=== PATIENT | female | born 1960 ===

== ENCOUNTER 2016-03-07 14:06 | Emergency (ER) | payer MEDICAID ==
[~2016-03-07] VITALS: Ht 157.5 cm; Wt 52.3 kg
[~2016-03-07 14:06] MED LIST: AMOX-366 PO; AMOX500T2 PO; OXYC-466 PO
[2016-03-07 14:10] VITALS: BP 113/69; PULSE 101; RESP 20; O2SAT 97
--- NOTE | 2016-03-07 17:34 | ED.REPORT ---
HPI-Rash / Abscess Date of Service Mar 07, 2016 ED Provider: Leandro Gilmore DO 56-year-old female recent past medical history of abscess incision and drainage and debridement in the right thigh. Patient was discharged on 03/02/2016 though did not follow-up at wound care clinic stating that she was never told how to age her bandage or where to go for follow-up. Patient is here today for bandage dressing. She does complain of pain surrounding the area, no reported fevers or other complaints. Nursing Notes Stated Complaint: BANDAGE NEEDS CHANGED Chief Complaint: Extremity Trauma Allergies: Coded Allergies: No Known Allergies (Unverified , 02/27/16) Scheduled Amoxicillin (Amoxicillin) 500 Mg Tablet 1,000 MG PO TID Amoxicillin/Clav K 875-125 mg (Augmentin 875-125 mg) 1 Each Tablet 1 TABLET PO BID Scheduled PRN oxyCODONE-Acetaminophen 10-325 mg (oxyCODONE-Acetaminophen 10-325 mg) 1 Each Tablet 1 TAB PO Q3H PRN PRN For Pain General Time Seen by MD: 16:34 Chief Complaint Abscess (status post debridement wound redressing) Hx Obtained From: Patient Past Medical History Past Medical History Stroke "vein wrapped around ribs" Family History Noncontributory Smoking History Current Every Day Smoker Social History Drug Use: Denies drug use, In recovery Other Social History: Local resident Ambulatory Status Independent Review of Systems REVIEW OF SYSTEMS Constitutional: Denies Chills, Fever Eyes: Denies Blurred Vision, Vision Changes Neck: Denies Mass, Pain, Swelling Cardiovascular: Denies Chest Pain, Irregular Heart Rate, Palpitations Respiratory: Denies Cough, Shortness of Breath, Sputum Gastrointestinal: Denies Abdominal Pain, Constipation, Diarrhea, Heartburn, Nausea, Vomiting Genitourinary: Denies No burning or pain with urination Musculoskeletal: Denies Ankle Pain, Back Pain, Knee Pain, Neck Pain, Shoulder Pain Skin: Reports: Denies Itching, Lesions, Rash. Endorses right thigh surrounding wound site. Neurological: Denies Change in LOC, Change in Speech, Confusion, Difficulty Walking, Dizziness, Double Vision, Localized Weakness, Numbness. Hematologic: Denies Abnormal Bleeding, Bruising Lymphatic: Denies Adenopathy Physical Exam General: Mild distress, well-developed, well-nourished, appropriately interactive, cachectic. HEENT: Normocephalic, atraumatic. External ears without defect. Pupils equal, round, and reactive to light and accommodation. Neck: Supple with full range of motion. No jugular venous distension. Cardiovascular: Regular rate and rhythm with no murmurs, rubs, or gallops appreciated Pulmonary: Clear to auscultation bilaterally with no crackles, wheezes, or rhonchi. Normal respiratory effort with no use of accessory muscles. Abdomen: Bowel tones present. Soft, nontender, nondistended. No hepatosplenomegaly or masses appreciated. Extremities: 7 cm wound right lateral thigh. Wound edges are red and "beefy" underlying musculature visible does not appear to be infected. Skin: No erythema surrounding wound, no purulent exudate from wound Neurological: Cranial nerves grossly intact. Normal muscle strength, tone, and bulk. Psychiatric: Normal mood and affect. Alert and oriented to person, place, and time. Initial Vital Signs Vital Signs (First) Date Time Temp Pulse Resp B/P Pulse Ox O2 Delivery O2 Flow Rate FiO2 03/07/16 14:10 36.8 101 20 113/69 97 Room Air Re-Eval/Medical Decision Med Decision/Clinical Course Patient wound packed with wet-to-dry gauze soaked in normal saline. Wound covered with sterile dressing. Patient given instructions on how to follow-up at wound care. And the importance of doing so. Counseled Regarding: Diagnosis, Need for follow-up, When/why to return to ED Discharge & Departure Impression: Primary Impression: Abscess Disposition: Home Discharge Condition All VS Reviewed: Yes Condition: Stable Additional Instructions: Please follow up with the wound care center in 2 days for additional management of your wound. Your wound was packaged today with a piece of sterile gauze moistened with normal saline and a bandage placed over it. He will need to have this bandage changed in 2 days, and it is extremely important that you follow-up at the wound care center. The telephone number for the wound care center is . Please call this phone number tomorrow to schedule an appointment for the following day I cannot stress to how important it is that you continue with your care regarding this wound to ensure that it heals properly. If you develop any fevers extreme redness tenderness to the area if you notice any discharge from the wound please return to the emergency department for additional evaluation. Referrals: [facility]OPCP (PCP) Attending Statement The patient was seen and examined together with Dr. Moore on 03/07/16 and I have added additional information to the note above. JORDY MOORE DO Mar 07, 2016 17:34 Leandro Gilmore DO Mar 07, 2016 18:22
== END 2016-03-07 18:09 | disposition home or self-care (01) ==
LOC: SED 14:06
DX: L02.415 Cutaneous abscess of right lower limb (principal); Z51.89 Encounter for other specified aftercare; F17.200 Nicotine dependence, unspecified, uncomplicated

== ENCOUNTER 2016-03-10 13:10 | Emergency (ER) | payer MEDICAID ==
[~2016-03-10] VITALS: Ht 157.5 cm; Wt 48.2 kg
[2016-03-10 13:18] VITALS: BP 118/75; PULSE 94; RESP 20; O2SAT 97
--- NOTE | 2016-03-10 13:39 | ED.REPORT ---
HPI-Rash / Abscess Date of Service Mar 10, 2016 ED Provider: Nathan Cosme PA-C Josephine is a 56-year-old female who presents to the ED for a wound check. Patient reports recent history of incision and drainage of abscess on her right thigh records indicate she was discharged from the hospital 02/23/2016 with instructions to follow wound care. She presented to the emergency department again 03/07/16 for a wound check, showing good progress. Patient states she is not engaged with wound care, and prefers to come emergency department because her ex- is admitted to the hospital here. Also states that she lives in [place] and would like a referral to wound care closer to home. Admits to pain around the wound site, denies fever, chills, abdominal pain, vomiting. Additional complaint of generalized leg pain that she relates to an old lumbosacral injury. Patient states that she previously had reduced sensation in the legs but now "the feeling is coming back" and that she finds the pain is troublesome. She states that she has been treating the pain with ibuprofen and acetaminophen to little effect. Cannot relate dosing or schedule. Patient admits to previous difficulty with opioid addiction Nursing Notes Stated Complaint: RIGHT LEG BANDAGE NEEDS CHANGED Chief Complaint: Wound Recheck/Suture Removal Nursing Notes Reviewed: Yes Allergies: Coded Allergies: No Known Allergies (Unverified , 02/27/16) Scheduled Amoxicillin (Amoxicillin) 500 Mg Tablet 1,000 MG PO TID Amoxicillin/Clav K 875-125 mg (Augmentin 875-125 mg) 1 Each Tablet 1 TABLET PO BID Scheduled PRN oxyCODONE-Acetaminophen 10-325 mg (oxyCODONE-Acetaminophen 10-325 mg) 1 Each Tablet 1 TAB PO Q3H PRN PRN For Pain General Time Seen by MD: 13:22 Chief Complaint Return visit, abscess Past Medical History Past Medical History Stroke "vein wrapped around ribs" Family History Noncontributory Smoking History Current Every Day Smoker Social History Drug Use: Denies drug use, In recovery Other Social History: Local resident Ambulatory Status Independent Review of Systems General: Denies fever, chills, malaise. Respiratory: Denies dyspnea Cardiovascular: Denies chest pain Gastrointestinal: Denies vomiting, diarrhea, abdominal pain. Otherwise as noted in HPI. Physical Exam General: Cachectic, moderate distress. Tearful. Head: Atraumatic, normocephalic. Eyes: No scleral icterus or injection. No discharge. Vision grossly intact. ENT: Voice clear, hearing grossly intact. Skin: Warm and dry. Approximately 6 cm gaping incision lateral right thigh. Muscle tissue visualized at base. Granulation tissue at visible wound margins. No purulent discharge or drainage. Tenderness surrounding the wound though no redness, swelling, heat. Neurological: Grossly nonfocal. Psychological: alert and oriented to person and place. States that she does not know if it stayed overnight. Speech appropriate, linear and logical. Anxious. Initial Vital Signs Vital Signs (First) Date Time Temp Pulse Resp B/P Pulse Ox O2 Delivery O2 Flow Rate FiO2 03/10/16 13:18 36.8 94 20 118/75 97 Room Air Initial VS: Reviewed Procedures Procedure Notes: Patient was seen and wound dressed by wound care nurse who reports that appears to be healing well. Skin: Wound / Burn Check Location: Wound uncovered and inspected. Called to consult wound care nurse. Normal Wound / Burn Check: Healing well, No apparent infection, No discharge , No abscess / fluctuance Palpation Abnormal: Tenderness moderate Packing: Packing removed Discharge & Departure Impression: Primary Impression: Status post incision and drainage Disposition: Home Discharge Condition All VS Reviewed: Yes Condition: Stable Patient Instructions: Abscess Incision and Drainage (ED) Additional Instructions: Wound check performed in the ED. History and physical are reassuring that there is no indication of infection. The wound appears to be healing well. We had the wound dressed by a wound care nurse and arrangements were made for follow-up with wound care at [facility] in [place] at 1:30 on March 14. You also had a consultation with our licensed clinical social worker. Please follow-up with wound care as planned, and call [facility] tomorrow to arrange follow-up in the next few days to address your other symptoms. Return to emergency department for any new or worsening symptoms including fever, increasing pain, redness, swelling or pus at the wound site. Referrals: [facility] Attending Statement pt seen and examined wound care nurse consulted agree with assessment and plan as above Nathan Cosme PA-C Mar 10, 2016 13:39 Shonda Chao MD Mar 10, 2016 19:17
--- NOTE | 2016-03-10 17:35 | NUR ---
Wound Care Patient seen at bedside for dressing change of previously I&D'd wound right thigh. Wound- right lateral thigh. Drainage-scant, no odor. Periwound- no erythema, tunneling or undermining. Base- granulation tissue, muscle. Measures- 7 cm x 1.5 cm x 1.5 cm. Redressed with Aguacel Ag to pack, covered with foam dressing. Pt tolerated treatment without pain. Pt scheduled for follow up appointment at [facility] 03/14/16.
== END 2016-03-10 15:21 | disposition home or self-care (01) ==
LOC: SED 13:10
DX: Z48.01 Encounter for change or removal of surgical wound dressing (principal); L02.415 Cutaneous abscess of right lower limb; F17.200 Nicotine dependence, unspecified, uncomplicated; Z86.73 Personal history of transient ischemic attack (TIA), and cerebral infarction without residual deficits